=== PATIENT | female | born 1965 | race Caucasian/White ===

== ENCOUNTER 2022-04-06 07:30 | Outpatient (RCR) | payer MEDICAID, SELFPAY | END 2022-07-06 15:23 | disposition home or self-care (01) | PROVIDERS: PCP Physician Assistant Medical; Visit Provider Family Medicine | DX: M51.26 Other intervertebral disc displacement, lumbar region (principal); Z51.89 Encounter for other specified aftercare | CPT/HCPCS: 97110; 97112; 97140; 97161 ==

== ENCOUNTER 2024-09-21 17:02 | Emergency (ER) | payer BC, SELFPAY ==
--- OUTSIDE RECORDS SUMMARY | 2024-09-21 17:06 | XMS_ITS | Data Portability ---
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 Splint fit was reviewed and Adjustments were made to the splint to improve fit and occlusal comfort. Occlusal balance needed to be reset on the appliance. I recommended continued care with the physical therapy home exercise program. Patient has not been compliant with those in recent months. However, after a trial of home exercises, if symptoms are persistent, the patient may seek support from our PT. Total visit time 20 minutes. I spent 15 minutes on counselling and co-ordination of care. [email or web address] Not available 12/06/2017 11:27:31 06/26/2020 06/26/2020 Today I reviewed the diagnosis, contributing factors and treatment options. I reviewed and reinforced continued use of self care and home exercises. I've encouraged daily home care use which may consist of heat and ice compresses, oral habit reduction and relaxation techniques. The intraoral appliance was fractured. Today, we took impressions for a new custom maxillary stabilization device. In addition, I've recommended physical therapy with Keith Freedman DPT, to address her masticatory and cervical myofascial pain and tension-type headaches. I've requested her panoramic radiograph from her dentist as well. I've suggested that the patient return for follow-up care in 2 weeks. Today greater than 50% of the 25 minute visit was spent counseling and coordinating care. This may have included a review of the diagnosis, contributing factors, home self-management strategies and the limitations and expectations. Not available 06/26/2020 12:13:30 07/02/2020 07/02/2020 Symptoms are consistent with TMD diagnosis. Patient is low complexity with 1 personal factors/comorbidi ties affecting the plan of care, low complexity decision making and a stable clinical presentation. Examination yields 3 affected structures, participation restrictions and/or functional limitations. The patient will benefit from PT to decrease pain and increase function. Contributing factors include muscle guarding, stress and poor posture. Treatment will include exercises to release muscle tension and increase strength and stability. Habit monitoring and repeated reminding techniques will be utilized to eliminate habitual clenching. Improvement in first session; jaw opening increased, cervical ROM increased, pain level decreased Short term goals; 3 weeks Client to be able to bite down with 50% less pain than at evaluation Client to improve cervical ROM to Within Normal Limits Improve patient awareness of muscle guarding habits to decrease pain by 50% truck terminal manager goals-6 weeks Client to demonstrate independence in maintaining precautions to prevent TMJ pain Client to present with at least 75% less crepitis Client to open jaw to at least 40 mm without pain, deviation or crepitis Client to have pain-free chewing with moderately hard diet 75% of the time Client to report pain level is reduced at least 75% PLAN: Client is to be seen 1-2x/week for 4-8 weeks for instruction in jaw and neck exercises, postural exercises and body mechanics instructions, self-soft tissue mobilization and avoidance of precipitating parafunctional activities. [email or web address] Not available 07/02/2020 10:57:08 07/25/2020 07/25/2020 Patient was seen today for follow-up and insertion of a maxillary stabilization intraoral appliance. Diagnosis and contributing factors were reviewed. Questions were answered. Self-management and home exercise techniques were reviewed. Today the intraoral appliance was fit to patient comfort. Specifically, adjustments were made to balance appliance occlusion. Instructions on proper use and care were discussed/reviewe d both written and verbally. I suggested that (s)he uses the appliance as a retraining tool to aid in relaxing their jaw muscles - put it in 20-30 minutes before bed time, keeping their jaw in a relaxed balanced position, simultaneously applying a heat compress on the jaw. Potential side effects were reviewed. The patient was advised to discontinue oral appliance use should they experience untoward side effects or be unable to return for follow-up care. The patient was advised to return in 3-4 weeks to reassess their progress and continue their treatment plan as previously outlined. In addition to oral appliance insertion today we review home self-care strategies as previously discussed. We discussed additional treatment options including rehabilitative treatment with physical therapy History today was obtained from the patient. The patient has 5+ diagnoses which we are addressing. Their symptoms are chronic. This case is moderate complexity because of multiple diagnoses with chronic symptoms. Data reviewed included procedure documentation. Risk of complications include disease progression were discussed. Today time spent may have included a review of past records, history taking, review of diagnoses, contributing factors, treatment plan, diagnostic testing, prognosis, expectations, risks and complications of treatment/no treatment, discussions with other providers and completing documentation was 35 minutes. Not available 07/25/2020 16:08:56 08/29/2020 08/29/2020 Today I reviewed the diagnosis, contributing factors and treatment options. I reviewed and reinforced continued use of self care and home exercises. I've encouraged daily home care use which may consist of heat and ice compresses, oral habit reduction and relaxation techniques. The intraoral appliance was adjusted to patient comfort and balanced. History today was obtained from the patient. The patient has 5+ diagnoses they would like to address. Their symptoms are improving. This case is moderate complexity because of multiple diagnoses with chronic symptoms. Data reviewed included: procedure documentation. Risk of complications including disease progression were discussed. Today time spent may have included a review of past records, history taking, review of diagnoses, contributing factors, treatment plan, diagnostic testing, prognosis, expectations, risks and complications of treatment/no treatment, discussions with other providers and completing documentation was 35 minutes. I've suggested that the patient return for follow-up care in 3-4 months. Not available 08/29/2020 12:50:54 Plan of Treatment Reminders Order Date Submit Date Provider Last Modified By Organization Details Last Modified Time Details Appointments None recorded. Lab None recorded. Referral physical therapist referral 2019 020 [email or web address] Not available 0 12:24:21 Procedures None recorded. Surgeries None recorded. Imaging None recorded. Medication Orders None recorded. Patient TargetsNo targets recorded. Patient Instructions Encounter Date Encounter Id Patient Instructions Last Modified By Organization Details Last Modified Time 06/26/2020 [id number] oral appliance preparation* Not available 06/26/2020 12:14:41 07/02/2020 [id number] Plan: Medicare requires a audit specialist or CABLE TOOL OPERATOR to authorize our plan of care. If you agree with the plan as outlined above, please sign, date and fax back to [phone]. Thank you. Primary MD signature: Date: [email or web address] Not available 07/02/2020 10:02:24 Reason for Referral Physical Therapist Referral for Myofascial pain Referring Physician: Lesia Jewell, Pain Management, Encounter Date: 06/26/2020 Results Created Date Observation Date Name Description Value Unit Range Abnormal Flag Note LastModifiedBy Organization Detail LastModifiedTime 06/26/20 20 06/26/2020 oral appli ance prepa ratio n* Type of appliance maxill caitlyn stabil izatio n applia nce Not Available [place] [address] [facility] [address], [place], [address], 06/26/2020 12:13:33 Result Notes None recorded. 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 52063510771 616000 Active 2019 right disc displace ment with reductio n Lesia DeCjose lopez, [facility] 0 12:07:44 Arthralg ia of temporom andibula r joint 51325585 Active 2019 Lesianorma Vegasamm john, [facility] 0 12:08:02 Jaw pain 174081144 Completed 201506/26/2020 Lesia DeCjose john, [facility] 0 11:52:47 Headache 04722708 Completed 201506/26/2020 Lesia Milli lopez, [facility] 0 11:52:44 Migraine with aura 4417191 Completed 201506/26/2020 Lesia Milli lopez, [facility] 0 11:53:02 Fibromyo sitis 53769461 Completed 201406/26/2020 Lesianorma Vegasamm john, [facility] 0 11:52:41 Arthralg ia of temporom andibula r joint 74521806 Completed 201506/26/2020 Lesia Milli lopez, [facility] 0 12:08:02 Vitamin D deficien cy 50047668 Completed 200906/26/2020 Lesia Milli lopez [facility] 0 11:52:49 Inflamma tory disease of mucous membrane 39091788 Completed 201106/26/2020 Lesia Milli john, [facility] 0 11:52:57 Chronic tension- type headache 481275462 Completed 201406/26/2020 Lesia Milli lopez, [facility] 0 11:52:38 Finding of sensatio n by site 359439152 Completed 201506/26/2020 Lesia Milli lopez [facility] 0 11:52:34 Migraine without aura 95908459 Completed 201106/26/2020 Lesia lopez [facility] 0 11:53:00 Temporom andibula r joint disorder 38890013 Active 2011 Not Available [facility] 6 02:43:58 Chronic pain syndrome 141122132 Completed 201106/26/2020 Lesia lopez [facility] 0 11:52:51 Episodic tension- type headache 605123541 Active 2011 Not Available [facility] 6 02:46:58 Neck pain 96650169 Active 2014 Not Available [facility] 6 03:14:15 Problem Notes None recorded. Procedures Surgical History Date Name Laterality Status Provider Name and Address Organization Details Recorded Time 1 Oral appliance completed Lanre Bean [facility] 07/25/2020 14:12:25 1 56305 PT Eval - Low Complexity completed [facility] 07/02/2020 10:52:23 1 40764: Therapeutic Exercise completed Keithalberto Phelps [facility] 07/02/2020 10:58:11 1 51131: Manual Therapy completed Keithalberto Phelps [facility] 07/02/2020 10:57:57 [place] Teeth Extraction completed Sam Garcia [facility] 06/26/2020 11:45:18 Imaging Results None recorded. Procedure Notes None recorded. Medical Equipment None Reported. Allergies Allergen ID Allergen Name Allergen Category Reaction Reaction Severity Criticality Documentation Date Start Date Code Code System Note Provider Name and Address Organization Details Recorded Time 653 Benadryl medicatio n Not available Not available Not available 03/18/201613362 7 RxNorm Bharati Machado john [facility] 6 09:29:53 654 shellfish derived food,medi cation Not available Not available Not available 03/18/2016 56949 UNK Bharati lopez [facility] 6 09:29:58 655 Iodinated contrast media (substanc e) medicatio n Not available Not available Not available 03/18/2016 30370 2004 SNOMED Bharati lopez [facility] 6 09:30:14 656 morphine medicatio n Not available Not available Not available 03/18/2016 7052 RxNorm Bharati lopez [facility] 6 09:30:23 657 Sudafed medicatio n Not available Not available Not available 03/18/2016 81564 2 RxKisharm Bharati lopez [facility] 6 09:30:31 Medications Name Sig Start Date Stop Date Status Note LastModified by Organization Details LastModified Time cyclobenzap rine 10 mg tablet TAKE ONE TABLET BY MOUTH TWICE DAILY NEEDED for muscle spasm active Not Available Not Available No t Available Topamax 25 mg tablet one tab PO BID and increase by 1 tab BID each week up to 4 tabs BID 12/06 completed Not Available Not Available Not Available sumatriptan 50 mg tablet 12/06 completed Not Available Not Available Not Available triamcinolo ne acetonide 0.1 % topical cream 03/18 completed Not Available Not Available Not Available triamcinolo ne acetonide 0.025 % topical cream 03/18 completed Not Available Not Available Not Available amitriptyli ne 10 mg tablet 03/18 completed Not Available Not Available Not Available paroxetine 20 mg tablet 06/26 completed Not Available Not Available Not Available triamcinolo ne acetonide 0.1 % topical ointment Apply topically to affected area(s) 2 times daily active Not Available Not Available No t Available Valtrex 1 gram tablet TAKE ONE TABLET BY MOUTH TWICE DAILY active Not Available Not Available No t Available mometasone 0.1 % topical ointment 12/06 completed Not Available Not Available Not Available epinephrine 0.3 mg/0.3 mL injection, auto-inject or active Not Available Not Available Not Available methylpredn isolone 4 mg tablets in a dose pack 03/18 completed Not Available Not Available Not Available hydrocortis one 2.5 % topical ointment 12/06 completed Not Available Not Available Not Available fluticasone propionate 50 mcg/actuati on nasal spray,suspe nsion Inhale 1 spray every day by intranasa l route. active Not Available Not Available No t Available Lotemax 0.5 % eye drops,suspe nsion 03/18 completed Not Available Not Available Not Available Ventolin HFA 90 mcg/actuati on aerosol inhaler 12/06 completed Not Available Not Available Not Available Vitals Date Recorded Body height Body mass index (BMI) Body weight Heart rate Systolic blood pressure Diastolic blood pressure Provider Name and Address Organization Details Last Updated DateTime 8 165.1 cm 27 kg/m2 62149.9 6 g 59 /min 133 mm[Hg] 75 mm[Hg] Sam Garcia [facility] 8 10:14:20 Date Recorded Body height Body mass index (BMI) Body weight Body temperature Heart rate Systolic blood pressure Diastolic blood pressure Provider Name and Address Organization Details Last Updated DateTime 0 165.1 cm 28.6 kg/m2 82652.8 9 g 97.3 [degF] 74 /min 109 mm[Hg] 79 mm[Hg] Sam Garcia [facility] 0 11:41:05 Date Recorded Body height Body temperature Heart rate Systolic blood pressure Diastolic blood pressure Provider Name and Address Organization Details Last Updated DateTime 07/25/2020 165.1 cm 97.3 [degF] 74 /min 122 mm[Hg] 85 mm[Hg] Lanre Bean [facility] 1 14:05:49 Date Recorded Body height Body temperature Heart rate Systolic blood pressure Diastolic blood pressure Provider Name and Address Organization Details Last Updated DateTime 08/29/2020 165.1 cm 97.5 [degF] 73 /min 121 mm[Hg] 80 mm[Hg] Lanre Bean [facility] 1 09:33:08 Social History Question Answer Notes LastModified by Organizat ion Details LastModified Time Tobacco Smoking Status Never Smoker Bharati lopez [facility] 03/18/2016 09:32:16 What Is Your Level Of Alcohol Consumption? Moderate Information not available 06/26/2020 Auto Related Injury? No Information not available 06/26/2020 What Is Your Level Of Caffeine Consumption? Moderate Information not available 06/26/2020 Are You Currently Employed? No Information not available 06/26/2020 Currently No Information not available 06/26/2020 What Type Of Diet Are You Following? REGULAR Information not available 06/26/2020 Education 4 Year College Information not available 06/26/2020 Live Alone Or With Others? Alone Information not available 06/26/2020 Marital Status Single Informatio n not available 06/26/2020 Caffeine Use - How Much? 2 Cups Information not available 06/26/2020 What Was The Date Of Your Most Recent Tobacco Screening? 12/06/2017 Information not available 01/19/2019 General Stress Level Medium Information not available 06/26/2020 Do You Use Any Illicit Or Recreational Drugs? No Information not available 06/26/2020 Work Related Injury? No Information not available 06/26/2020 Sex: Unknown Functional Status Question Answer Note LastModified by Organization D etails LastModified Time What is your exercise level? Moderate Information not available 06/26/2020 Mental Status None recorded. Family History Nothing Reported Notes:03/09/2016: Father: Tanya springer, Cancer Mother: Hypertension Medical History Condition Response Coronary Artery Disease N Gout N Other N Chronic fatigue syndrome N Hyperthyroidism N Premenstrual syndrome (PMS) N MRSA N Head Trauma/Injury N Emphysema N Irritable bowel syndrome N Glaucoma N Lung Disease N COPD N Hypothyroidism N Depression N Pneumonia N Pacemaker N Obstructive Sleep Apnea N Anxiety Disorder N Autoimmune disease N Muscle, Joint, or Bone Problems N Vision or Eye Problems N Arthritis N Serious Illness or Injuries N Acid Reflux (GERD) N Cancer N Stroke N Eating disorder N Neck Injury N Back Injury N High Cholesterol N History of chemotherapy N Neurologic Disorder N Liver Disease N Organ Transplant N Rheumatoid Arthritis N Headaches N Fibromyalgia N Kidney Disease N Allergies/Hayfever N Post traumatic stress disorder (PTSD) N Parkinson's Disease N Migraines N Brain Tumors N Anemia N Multiple Sclerosis N Immune System Disorder N Meningitis N Pancreatic disease N Heart Attack ([place]) N Stomach Ulcers N Back pain N Diabetes N Bleeding Disorder N Seizures/Epilepsy N Sjogren's syndrome N Mental Health Concerns N Tuberculosis N AIDS/HIV N History of radiation therapy N Hyperlipidemia N Dementia N Asthma N Physical or sexual abuse N Substance Abuse N Peripheral Vascular Disease N Psoriasis N Reflux/GERD N Vertigo N Sleep Disorder N Aneurysm N Hepatitis N Heart Disease N Neuropathy N Pulmonary Embolism N Hypertension N Osteoporosis N Gynecological HistoryNo gynecological history recorded. Obstetrics History GPAL:G 0 P 0 0 0 0 Past Encounters Encounter ID Performer Location Encounter Start Date Encounter Closed Date Diagnosis/Indication Diagnosis SNOMED-CT Code Diagnosis ICD10 Code Diagnosis Note [id number] [place] [id number] 03/18/2016 09:23:04 03/18/2016 10:22:28 Migraine with aura 2265837 G43.109 I think there is some underlying distress and stress that contribute s to her polysympto molgy. She was not feeling any need to explore the stress factors or emotional factors. I am therefore going to treat the more persistent headache symptoms as migraine with a trial of topiramate . I reviewed the side effects and the importance of hydration to prevent kidney stones. If she is not improving, I will make another effort to delve into contributi ng factors. [id number] Renetta Douglas DDS [address] [place] [id number] 12/06/2017 09:58:48 12/06/2017 11:29:46 Headache 41653031 R51 Fibromyositis 55985287 M 79.7 Chronic te nsion-type headache 703734563 G44.229 Episodic t ension-type headache 652415613 G44.219 [id number] Lesia Milli Hall[address] [place] [id number] 06/26/2020 11:25:52 06/26/2020 12:24:21 Episodic tension-type headache 492473565 G44.219 Otalgia of left ear 1089 394717 549402 H92.02 Temporoman dibular joint disorder 27057970 M26.609 Neck pain 63830619 M54.2 Arthralgia of temporomandibular joint 24136448 M26.623 Myofascial pain 87624333 9 M79.11 M79.12 tailercpa y and cervical Articular disc disorder of right temporomandibular joint 4352982479 9425492 M26.631 right disc displaceme nt with reduction [id number] Keith Cabello [address] [place] [id number] 07/02/2020 09:55:59 07/02/2020 10:44:06 Arthralgia of temporomandibular joint 68077011 M26.629 Articular disc disorder of right temporomandibular joint 9794150479 8144036 M26.631 Episodic t ension-type headache 684602027 G44.219 Myofascial pain 64507043 9 M79.10 Neck pain 29591400 M54.2 Otalgia of left ear 1089 114434 801965 H92.02 Temporoman dibular joint disorder 79172669 M26.609 [id number] Lesia Hall[address] [place] [id number] 07/25/2020 13:59:12 07/25/2020 14:48:22 Otalgia of left ear 9983525008 309440 H92.02 Articular disc disorder of right temporomandibular joint 9604064424 4387482 M26.631 right disc displaceme nt with reduction Episodic t ension-type headache 340154786 G44.219 Myofascial pain 52940768 9 M79.11 M79.12 tailercpa y and cervical Temporoman dibular joint disorder 13454524 M26.609 Neck pain 62850739 M54.2 Arthralgia of temporomandibular joint 95409048 M26.623 [id number] Lesia Cabello [address] [place] [id number] 08/29/2020 09:27:01 08/29/2020 10:13:48 Otalgia of left ear 5111938101 374719 H92.02 Articular disc disorder of right temporomandibular joint 1832635740 6852770 M26.631 right disc displaceme nt with reduction Episodic t ension-type headache 539690838 G44.219 Myofascial pain 60866966 9 M79.11 M79.12 tailercpa y and cervical Temporoman dibular joint disorder 00943070 M26.609 Neck pain 55526907 M54.2 Arthralgia of temporomandibular joint 58089477 M26.623 Health Concerns Section Related Observation LastModified by Organization Detai ls LastModified Time None Recorded Concern Status LastModified by Organization Details LastModified Time None Recorded Advance Directives Directive None Recorded Payers Encounter Date Sequence Insurance Name Policy Number Policy Guerrero Covered Member ID Guerrero Member ID Guarantor Name 12/06/2017 1 [facility] (MEDICAID HMO) [id number] Stephanie Artie [id number] Stephanie Artie 06/26/2020 [address] [facility] (MEDICAID REPLACEMENT - HMO) [facility] L Artie [id number] Stephanie Artie 07/02/2020 [address] [facility] (MEDICAID REPLACEMENT - HMO) [facility] Stephanie L Artie [id number] Stephanie Artie 07/25/2020 [address] [facility] (MEDICAID REPLACEMENT - HMO) [facility] Stephanie L Artie [id number] Stephanie Artie 08/29/2020 [address] [facility] (MEDICAID REPLACEMENT - HMO) [facility] L Artie [id number] Stephanie Artie Notes Date Note Type Note Provider Name and Address Organization Details Recorded Time 12/06/2017 text/html Patient reports that the jaw pain, located on the {{left-side* right- side both-sides}} has {{Improved* worsene d not changed resolved}} since the previous visit. Patient reports the quality of this pain as {{dul ache# }} . Patient rates the pain severity as {{0-3* 4-6 7-10}} on a scale of 0 to 10. Aggravating factors include {{chewing, stress, teeth clenching# chewing talking yawning ope jessica mouth wide teeth clenching teeth grinding stress anx iety}} .Alleviating factors include {{splint therapy, soft-diet, physical therapy,relaxation# soft-diet splint therapy physical therapy relaxation OTC Medications}}.Mehnaz tate is currently engaged in treatments including {{self-care self-ca re & PT Physical therapy self-care, PT and Health Psychology* self-ca re, medication, PT}}. Patient has seen the physical therapist in 2014. Renetta lopez [facility] 12/06/2017 11:27:46 06/26/2020 text/html Patient presents today for follow-up. They report jaw symptoms which are {{improved worsened * unchanged resolve d}} since the previous visit. Symptoms and pertinent information along with prior data was reviewed, updated and documented in the patient history of present illness. Patient rates the pain intensity as {{0 1 2 3 4 5 6* 7 8 9 10}} on a scale of 0 to 10. Patient is {{engaged in not engaged in partially engaged in completed* disco ntinued}} active treatment at this time. Stephanie is a former patient of Dr. Dunn. She has been wearing a maxillary splint for 5+ years. She has previously been engaged in p/t with Chelsi in 2014. 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 Since then, she has been experiencing jaw pain radiating down her neck and upper back, and steady dull headaches. Lesia lopez [facility] 06/26/2020 12:14:46 07/02/2020 text/html Personal factors and/or comorbidities affecting the plan of care include . Functional limitations and participation restrictions include . Patient presents today for PT evaluation regarding {{jaw pain jaw pain and neck pain jaw pain, neck pain and headaches jaw pain and decreased jaw range of motion}}. Symptoms began with {{no clear triggering events trauma stres s and anxiety oral habits stress, anxiety and oral habits}}. Contributing factors: *Clenching *Bruxism *Leaning on chin *Phone cradle *Biting objects/fingernails *[place]verse/chewing lips/cheeks *Tongue thrusting *Jaw thrusting *Unilateral chewing *{{Low Medium High} } stress level *{{Low Medium High} } anxiety level *Nicotine *Caffeine{{1 2 3 4 5}} per day *Sleep position {{left side right side sides and back sides and stomach sides, back and stomach}} *Work ergonomics{{good fa ir poor}} Patient presents today for follow-up. They report jaw symptoms which are {{improved worsened * unchanged resolve d}} since the previous visit. S Personal factors and/or comorbidities affecting the plan of care include . Functional limitations and participation restrictions include . Patient presents today for PT evaluation regarding {{jaw pain jaw pain and neck pain jaw pain, neck pain and headaches* jaw pain and decreased jaw range of motion}}. Symptoms began with {{breaking mouthguard; not in yet for new one# no clear triggering events trauma stres s and anxiety oral habits stress, anxiety and oral habits}}. Contributing factors: *Clenching *possibly*Leaning on chin *possibly *Unilateral chewing *Patient presents today for follow-up. They report jaw symptoms which are {{improved worsened * unchanged resolve d}} since the previous visit. Symptoms and pertinent information along with prior data was reviewed, updated and documented in the patient history of present illness. Patient rates the pain intensity as {{0 1 2 3* 4 5 6 7 8 9 10}} on a scale of 0 to 10. Stephanie is a former patient of Dr. Dunn. She has been wearing a maxillary splint for 5+ years. She has previously been engaged in p/t with Chelsi in 2014. 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 Since then, she has been experiencing jaw pain radiating down her neck and upper back, and steady dull headaches. She sees she is dependent on splint. once that broke symptoms came back. Cervical rotation left 57, right 68. She rates her headache at 3/10, gone by end of session. Upper trapezius sheet stretch helped Jaw opening 48 mm, painful bilaterally. Impct roves to 55 mm post upper trapezius stretch. Clicking in jaw was still present though, which was relieved with cervical retraction to help correct poor moderate forward head posture. Palpation: tenderness and tightness in occipitals, masseters, SCM, upper trapezius. Not digastrics or temporalis as much. JOSEPH Mathis [facility] 07/02/2020 10:58:22 07/25/2020 text/html Patient presents today for insertion of a {{mandibular stabilization maxil veronica stabilization* repo sitioning mandibula r advancement}} oral appliance. They note {{no changes in* improved worsen ing}} symptoms which along with prior data was reviewed, updated and documented in the patient history of present illness. (S)he describes {{compliance* parti al compliance non-comp liance}} with home self care as previously recommended. Stephanie states that she had one session of p/t but does not feel like she needs any more sessions at this time. She is still experiencing jaw and tooth pain radiating down neck and into her back. She is looking forward to her new splint. JOSEPH Zarate [facility] 07/25/2020 16:11:17 08/29/2020 text/html Patient presents today for follow-up. They report jaw symptoms which are {{improved* worsene d unchanged resolve d}} since the previous visit. Symptoms and pertinent information along with prior data was reviewed, updated and documented in the patient history of present illness. Patient rates the pain intensity as {{0 1 2 3* 4 5 6 7 8 9 10}} on a scale of 0 to 10. Patient is {{engaged in* not engaged in partially engaged in completed discon tinued}} active treatment at this time. Stephanie reports that she has been wearing the splint nightly and doing her p/t exercises regularly. She has noticed an improvement in her jaw pain. She recently had a severe headache on the left side of her head radiating down her neck in addition to fatigue. She had two Covid tests which were negative. The headache eventually resolved itself. Stephanie started a new job at the [employer], and it has been very stressful thus far. JOSEPH Zarate [facility] 08/29/2020 12:51:19 OBGyn Episode No OBEpisode recorded.
--- OUTSIDE RECORDS SUMMARY | 2024-09-21 17:06 | XMS_ITS | Clinical Summary ---
Author Organization [employer] [facility] Address [address] [place] [address] Care Team Providers Care Information Technology Auditor Name Role Phone Miryam Mcclain Primary Care Provider Allergies Active Allergy Reactions Criticality Noted Date Comments Aluminum Chloride Other - Describe In Comment Field Unknown 01/26/2018 Eczema Amoxicillin Rash 07/09/2011 Cetrimide Other - Describe In Comment Field 01/26/2018 eczema Cetrimonium Chloride Other - Describe In Comment Field Unknown 01/26/2018 eczema Cocamidopropyl Betaine Other - Describe In Comment Field Unknown 01/26/2018 eczema Dog Dander Itching 11/25/2006 Canine Protein Containing Products Itching 11/25/2006 House Dust Itching 11/25/2006 Iodinated Contrast Media Hives High 04/09/2008 See 03/2008 CT scan and clinic notes. See 03/2008 CT scan and clinic notes. Lanolin Other - Describe In Comment Field Unknown 01/26/2018 eczema Metrizamide Hives High 09/27/2017 Mite Extract Itching 11/25/2006 Mold Itching 11/25/2006 Mold Extracts Itching 11/25/2006 Morphine 10/26/2006 vomiting, diarrhea Nickel *Unknown 01/03/2014 Was tested for this Omeprazole Nausea Only 07/28/2011 Polysorbate 20 Other - Describe In Comment Field 01/26/2018 eczema Pseudoephedrine Shortness Of Breath,Anaphylaxis, Angioedema High 09/03/2006 Shellfish Containing Products Other - Describe In Comment Field 11/25/2006 puffiness puffiness Sorbitan Sesquioleate Other - Describe I n Comment Field 01/26/2018 eczema Unlisted Allergen (Include Detail In Comments) Rash 10/01/2017 Patch Test Results 10-01-17 Very Strong/Strong None Mild None Doubtful (Possible Irritant) Cocamidopropyl betaine Sorbitan sequioleate Lanolin Licorice root extract Centrimonium chloride 4-aminobenzene 1-20 Fragrances Aluminum chloride hexahydrate Curel hydratherapy Pantene shampoo Curel Anti Itch BW Medications hydrocortisone (HYTONE) 2.5 % ointment Apply topically to affected area(s). 10/02/19 18 Active EPINEPHrine (EpiPen) 0.3 mg/0.3 mL injectionIndicat ions:Annual physical exam Inject 0.3 mg intramuscular one time if needed for Allergic Reaction. 1 Each 3 12/13/19 21 Active fluticasone (50 mcg per actuation) nasal solution (FLONASE)Indicat ions:Seasonal allergic rhinitis due to pollen Inhale 2 Sprays to both nostrils once daily. Will call for refill. 3 Bottle 3 12/13/19 21 Active albuterol HFA (PRO-AIR; VENTOLIN; PROVENTIL) 90 mcg/actuation inhalerIndicatio ns:Mild intermittent reactive airway disease without complication (HC) Inhale 1-2 Puffs by mouth every 4 hours if needed for Shortness Of Breath. 1 Each 1 01/01/20 23 Active Valtrex 1 gram tabletIndication s:Recurrent HSV (herpes simplex virus) Take 1 Tablet (1 g) by mouth two times daily. 180 Tablet 2 07/30/19 24 Active valACYclovir (VALTREX) 1 gram tabletIndication s:Recurrent HSV (herpes simplex virus) Take 1 Tablet (1 g) by mouth two times daily. 180 Tablet 2 07/30/19 24 Active triamcinolone 0.1 % ointmentIndicati ons:Chronic eczema Apply topically to affected area(s) two times daily. 240 g 3 02/24/20 24 Active cyclobenzaprine (FLEXERIL) 5 mg tabletIndication s:Piriformis syndrome of right side Take 1 Tablet (5 mg) by mouth three times daily. 10 Tablet 06/13/20 24 Active Active Problems Problem Noted Date Diagnosed Date Mild intermittent reactive a irway disease without complication 02/11/2024 Routine adult health maintenance 10/21/2015 Overview (10/21/2015): Colonoscopy 09/2015 normal repeat in 10 years Cervicogenic headache 12/15/2013 DDD at C6-7 12/15/2013 TMJ syndrome 09/19/2013 Recurrent cold sores 07/20/2012 Overview (07/20/2012): Valtrex works well for this C6-7 Disc Herniation 12/23/2009 IBS (irritable bowel syndrome) 02/01/2009 Adjustment disorder with mixed anxiety and depre ssed mood 11/28/2007 Iron deficiency anemia, unspecified 11/16/2007 Allergic rhinitis, cause unspecified 05/21/2007 Myalgia and myositis, unspecified 12/03/2006 H/O LEEP Overview (02/22/2024): Cryotherapy x2 in 20s 06/2010 ASCUS/HPV negative 06/2011 NIL 11/2014 NIL 11/2017 NIL/HPV negative 12/2022 ASCUS/HPV 16 positive, HPV 18 negative 01/2023 [place]: ECC Benign 01/2024 ASCUS/HPV 16 positive, HPV 18 negative. Plan: Colposcopy. Resolved Problems Problem Noted Date Diagnosed Date Resolved Date History of colon polyps 12/04/2014/10/2015 Overview (12/04/2014): Colonoscopy 2007 Abdominal pain, epigastric 10/05/2011 0 12/15/2013 Overview (10/05/2011): EGD 09/2011 normal Anxiety state, unspecified 07/28/2011 0 12/15/2013 Displacement of cervical int ervertebral disc without myelopathy 03/04/2007 08/17/2013 Anxiety state, unspecified 11/01/2006 0 11/28/2007 Encounters Date Type Department Care Team Description 09/21/2024 Nurse Triage [facility] [address] [facility] [place] [address] Miryam Mcclain PA Chest Pain 08/10/2024 4:00 PM LINE MAINTENANCE TECHNICIAN Ancillary Procedure [facility] [address] [facility] [place] [id number] 08/10/2024 Travel 07/31/2024 8:30 AM LINE MAINTENANCE TECHNICIAN Office Visit [facility] [address] [place] [address] Miryam Mcclain PA Influenza Like Illness (Headaches, dry cough, fever, chest pain, dry sinuses since Wednesday AM) 07/31/2024 Travel from Last 3 Months Immunizations Immunization Administration Dates Next Due Hepatitis B (Adult) 08/14/1998,03/12/1998,1997 MMR 02/08/1998 Td (Age >=7 Years) 03/07/2003 Tdap 12/12/2020 Family History Medical History Relation Name Comments Good Health Brother Arthritis Father Cancer Father bone at 57 Cancer Maternal Grandfather Heart Disease Maternal Grandfather [place] at 48 Allergies Mother born 1942 Heart attack Mother Hyperlipidemia Mother Hypertension Mother Stroke Mother Heart Disease Other runs in both s ides of family Good Health Sister Cancer-breast No Family History Relation Name Status Comments Brother Father (Age 57) bone ca Maternal Grandfather Maternal Grandmother (Age 58) un known malignancy Mother Other Sister Social History Tobacco Use Types Packs/Day Years Used Date Smoking Tobacco: Former Cigarettes 1 15 1 - 04/02/2006 Smokeless Tobacco: Never Tobacco Cessation:Counseling Given: No Comments:quit in 03/2006 Alcohol Use Standard Drinks/Week Comments No 0 (1 standard drink = 0.6 oz pur e alcohol) none, not in 20+ years PHQ-2 Answer Date Recorded PHQ-2 TOTAL SCORE 0 02/11/2024 Social Connections Answer Date Recorded Do you often feel lonely or isolated from those around you? 0 07/31/2024 Financial Resource Strain Answer Date R ecorded Difficulty of Paying Living Expenses 3 07/31/2024 Difficulty of Paying Living Expenses Not on file 07/31/2024 Food Insecurity Answer Date Recorded Do you worry your food will run out before you are able to buy more? 1 07/31/2024 Transportation Needs Answer Date Record ed Does lack of transportation keep you from medica l appointments? 1 07/31/2024 Does lack of transportation keep you from work, meetings or getting things that you need? 1 07/31/2024 Housing Stability Answer Date Recorded What is your housing situation today? 1 07/31/2024 Utilities Answer Date Recorded Do you have trouble paying f or utilities (for example, heat, electricity, water, phone)? 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 Not on file Not on file Not on fi le Not on file Not on file Not on file Not on file Obstetrics History Para Term AB IAB SAB Ectopic Multiple Livin g Live Births 2 2 2 0 0 0 0 0 2 Date Outcome GA Total Labor Labor/2nd/3rd Weight Sex Type Anes PTL [place] A1 A5 Name Clin Term Term Last Filed Vital Signs Vital Sign Reading Time Taken Comments Blood Pressure 109/72 07/31/2024 8:32 AM LINE MAINTENANCE TECHNICIAN Pulse 88 07/31/2024 8:32 AM LINE MAINTENANCE TECHNICIAN Temperature 37.2 C (99 F) 07/31/2024 8:32 AM LINE MAINTENANCE TECHNICIAN Respiratory Rate 14 07/20/2023 8:43 AM LINE MAINTENANCE TECHNICIAN Oxygen Saturation 96% 07/31/2024 8:32 AM LINE MAINTENANCE TECHNICIAN Inhaled Oxygen Concentration - - Weight 79.8 kg (176 lb) 07/31/2024 8:32 AM LINE MAINTENANCE TECHNICIAN Height 165.1 cm (5' 5) 02/11/2024 7:53 AM CDT Body Mass Index 29.29 02/11/2024 7:53 AM CDT Plan of Treatment Upcoming Encounters Date Type Department Care Team (Late st Contact Info) Description 01/22/2025 8:30 AM CDT Office Visit [facility] [address] [place] [address] Miryam Mcclain PA [address] [place] [address] Health Maintenance Due Date Last Done Comments HIV for age 15-65 1980 Pneumococcal series for age 50+ (1 of 1 - PCV) 2015 Zoster (shingles) series for age 50+ (1 of 2) 2015 Mammogram for age 45-75 01/23/2024 01/23/20 23, 10/20/2021, 07/23/2020, Additional history exists COVID-19 vaccine series ( - 2023-25 season) 2024 Influenza Vaccine (#1) 2024 BMI (ht and wt on same day) for age 18+ 02/10/2025 02/11/2024, 12/31/2022, 03/04/2022, Additional history exists Depression screening for age 12+ 02/10/2025 02/11/2024, 10/20/2022, 09/22/2022, Additional history exists Pap test for age 21-65 03/08/2025 (Verified in Care Everywhere or Patient Record), 02/11/2024, 02/11/2024, Additional history exists Lipids for age 45-75 02/10/2029 02/11/2024, 12/31/2022, 12/13/2020, Additional history exists Tetanus booster 12/12/2030 12/12/2020, 03/07/2003 Colonoscopy through age 75 07/20/203307/20, 07/20/2023, 07/20/2023, Additional history exists Hepatitis C screening for ag e 18-79 Completed 12/04/2014 Tdap Completed 12/12/2020 Procedures Procedure Name Priority Date/Time Associated Diagnosis Comments CT CHEST WO Routine 08/10/2024 3:58 PM LINE MAINTENANCE TECHNICIAN Incidental lung nodule, less than or equal to 3mm LIPID PANEL W REFLEX MEASURED LDL Routine 02/11/2024 8:46 AM CDT Lipid screening HPV HIGH RISK Routine 02/11/2024 8:28 AM CDT Screening for cervical cancer COLONOSCOPY DIAGNOSTIC Routine 07/20/2023 7:21 AM LINE MAINTENANCE TECHNICIAN Hematochezia XR MAMMO JUNG BILAT SCREEN Routine 01/22/2023 8:08 AM CDT Encounter for screening mammogram for malignant neoplasm of breast ANTI HCV Routine 12/04/2014 10:17 AM CDT Need for hepatitis C screening test from Last 3 Months or Most Recently Relevant to Health Maintenance Results * CT CHEST WO (08/10/2024 3:58 PM LINE MAINTENANCE TECHNICIAN) Anatomical Region Laterality Modality CHEST, THORAX, HEART Computed To mography 08/11/2024 1:26 PM LINE MAINTENANCE TECHNICIAN Impressions 08/11/2024 1:26 PM LINE MAINTENANCE TECHNICIAN Stable 3 millimeter right upper lobe pulmonary nodule. No new or concerning lung nodule. Please note that all CT scans at this facility use dose modulation, iterative reconstruction, and/or weight-based dosing when appropriate to reduce radiation dose to as low as reasonably achievable. Dictated by Ruben Plascencia MD @ 08/11/2024 1:26:34 PM (Electronically Signed) Narrative 08/11/2024 1:26 PM LINE MAINTENANCE TECHNICIAN For Patients: As a result of the Cures Act, medical imaging exams and procedure reports are released immediately into your electronic medical record. You may view this report before your referring provider. If you have questions, please contact your health care provider. INDICATION: Lung nodule. TECHNIQUE: CT chest without contrast. COMPARISON: None. FINDINGS: Lungs and pleura: Unchanged 3 millimeter right upper lobe pulmonary nodule (). A small calcified granuloma in the right upper lobe. Chronic scarring/subsegmental atelectasis in the medial segment of right middle lobe. No new or suspicious lung nodule. No pleural effusion or pneumothorax. The central airways are patent. Heart and vasculature: Cardiac size is within normal limits without pericardial effusion. Thoracic aorta and pulmonary artery are of normal caliber. Lymph nodes/mediastinum: No suspicious mediastinal or axillary adenopathy. No hilar lymph nodes. Upper abdomen: Stable few hypodense liver lesions. No acute findings in the upper abdomen. Bones: Minimal degenerative changes of the spine. No concerning bony lesion. Procedure Note Ruben Plascencia MD - 08/11/2024 For Patients: As a result of the Cures Act, medical imagingexams and procedure reports are released immediately into your electronicmedical record. You may view this report before your referring provider.If you have questions, please contact your health care provider. INDICATION: Lung nodule. TECHNIQUE: CT chest without contrast. COMPARISON: None. FINDINGS: Lungs and pleura: Unchanged 3 millimeter right upper lobe pulmonary nodule(). A small calcified granuloma in the right upper lobe. Chronicscarring/subsegmental atelectasis in the medial segment of right middlelobe. No new or suspicious lung nodule. No pleural effusion orpneumothorax. The central airways are patent. Heart and vasculature: Cardiac size is within normal limits withoutpericardial effusion. Thoracic aorta and pulmonary artery are of normalcaliber. Lymph nodes/mediastinum: No suspicious mediastinal or axillary adenopathy.No hilar lymph nodes. Upper abdomen: Stable few hypodense liver lesions. No acute findings inthe upper abdomen. Bones: Minimal degenerative changes of the spine. No concerning bonylesion. IMPRESSION: Stable 3 millimeter right upper lobe pulmonary nodule. No new orconcerning lung nodule. Please note that all CT scans at this facility use dose modulation,iterative reconstruction, and/or weight-based dosing when appropriate toreduce radiation dose to as low as reasonably achievable. Dictated by Ruben Plascencia MD @ 08/11/2024 1:26:34 PM (Electronically Signed) us Miryam EVANGELISTA CT Final R esult * (ABNORMAL) LIPID PANEL W REFLEX MEASURED LDL (02/11/2024 8:46 AM CDT) CHOLESTEROL,TOTAL 203(H) 100 - 199 mg/dL 02/11/2024 5:31 PM CDT [facility] Comment: Cholesterol, Total Reference Ranges Desirable <200 mg/dL Borderline 200-239 mg/dL High >=240 mg/dL TRIGLYCERIDES 173(H) <150 mg/dL 02/11/2024 5:31 PM CDT [facility] HDL CHOLESTEROL 54 >40 mg/dL 5:31 PM CDT [facility] NON-HDL CHOLESTEROL 149(H) <145 mg/dl 02/11/2024 5:31 PM CDT [facility] CHOL/HDL RATIO 3.76 <4.50 02/11/2024 5:31 PM CDT [facility] LDL CHOLESTEROL 114 <=130 mg/dL 02/11/2024 5:31 PM CDT [facility] VLDL CHOLESTEROL 35(H) <=30 mg/dL 02/11/2024 5:31 PM CDT [facility] PROVIDER ORDERED STATUS RANDOM 02/11/2024 5:31 PM CDT [facility] Blood BLOOD SPECIMEN / Unknown Venipuncture / Unknown 02/11/2024 8:46 AM CDT 02/11/2024 8:46 AM CDT us [address] MD CHEMISTRY Final Resul t Performing Organization Address City/[facility] Co de Phone Number [facility] [address] [address], [place] * (ABNORMAL) HPV HIGH RISK (02/11/2024 8:28 AM CDT) TYPE 16 Positive(A) Negative 02/16/2024 5:34 PM CDT [facility] TYPE 18 Negative Negative 02/16/2024 5:34 PM CDT [facility] OTHER HIGH RISK TYPES Negative Negative 02/16/2024 5:34 PM CDT [facility] Other (Cervical) Non-Blood / Unknown 02/11/2024 8:28 AM CDT 02/14/2024 3:30 PM CDT Narrative [facility] - 02/16/2024 5:34 PM CDT Specimen is positive for HPV type 16 DNA. HPV types 18, 31, 33, 35, 39, 45, 51, 52, 56, 58, 59, 66 and 68 DNA were undetectable or below the pre-set threshold Methodology: Lori Juan [address] HPV Test us Ophelia [address] MD MICROBIOLOGY Final Resul t Performing Organization Address [facility] Co de Phone Number [facility] [address] [address], [place] * COLONOSCOPY (07/20/2023 7:46 AM LINE MAINTENANCE TECHNICIAN) 07/20/2023 7:46 AM LINE MAINTENANCE TECHNICIAN Narrative Transcriptions Varun Centeno MD - 07/20/2023 8:34 AM CST Patient Name: Stephanie Alva Procedure Date: 07/20/2023 Gender: Female Date of : 1965 Admit Type: Outpatient Procedure: Colonoscopy Proceduralist: Varun Centeno MD , Nan Cornell (Nurse), Allegra Perez RN (Nurse) Referring MD: Ophelia St Indications/Pre-Op Diagnosis: Evaluation of unexplained GI bleeding presenting with Hematochezia, Lastcolonoscopy: September 2015 Medications: Fentanyl 50 micrograms IV, Midazolam 2 mgIV, The level of sedation administered wasmoderate Procedure Description: The patient had risks, benefits and alternatives explained to andgave informed consent. The patient had a stable cardiopulmonary status and judged an adequate candidate for conscious sedation. The [id number] was passed through the anus and advanced to the terminal ileum. The colonoscopy was performed without difficulty. The patient tolerated the procedure well. The quality of the bowel preparationwas good. The terminal ileum, ileocecal valve, appendiceal orifice, and rectum were photographed. Complications: No immediate complications. Estimated Blood Loss & Specimen: Estimated blood loss: none. Specimen collected - None Findings: The perianal and digital rectal examinations were normal. Non-bleeding internal hemorrhoids were found during retroflexion. The hemorrhoids were mild. The terminal ileum appeared normal. The exam was otherwise without abnormality on direct and retroflexion views. Impressions/Post-Op Diagnosis: - Non-bleeding internal hemorrhoids. - The examined portion of the ileum was normal. - The examination was otherwise normal on direct and retroflexionviews. - No specimens collected. Recommendation: - Patient has a contact number available for emergencies. The signsand symptoms of potential delayed complications were discussed with the patient. Return to normal activities tomorrow. Written discharge instructions were provided to the patient. - Resume previous diet. - Continue present medications. - Repeat colonoscopy in 10 years for screening purposes. - I will order a liver panel and celiac screen for her epigastric discomfort. Moderate Sedation: A time out was performed before the procedure. Moderate (conscious) sedation was administered by the endoscopy nurse and supervised bythe endoscopist. The following parameters were monitored: oxygensaturation, heart rate, blood pressure, EKG, CO2, respiratory rate, adequacy of pulmonary ventilation and reponse to care. Please refer to the patient's medical record flowsheets and nursing notes for moderate sedation details. Total physician intraservice time was 16 minutes. Varun Centeno MD 07/20/2023 8:33:45 AM This report has been signed electronically. Note Initiated On: 07/20/2023 7:46 AM Procedure Code(s): --- Professional --- 93186, Colonoscopy, flexible; diagnostic, including collection of specimen(s) bybrushing or washing, when performed (separateprocedure) Diagnosis Code(s): --- Professional --- K64.8, Other hemorrhoids K92.1, Melena (includes Hematochezia) CPT copyright 2021 [employer]. All rights reserved. The codes documented in this report are preliminary and upon certified coder reviewmay be revised to meet current compliance requirements. Scope In: 8:10:10 AM Scope Withdrawal Time 0 hours 7 minutes 28 seconds Scope Out: 8:23:59 AM us Varun Centeno MD PROCEDURE ORD Final Res ult * XR MAMMO JUNG BILAT SCREEN (01/22/2023 8:08 AM CDT) Anatomical Region Laterality Modality BREASTS, Breast Left, Breast Right Bilateral Mammography Impressions 01/22/2023 3:50 PM CDT There is no radiographic evidence for malignancy. Recommend annual mammograms. MAMMOGRAM ASSESSMENT: ACR 1 Negative PATIENTS: You will also receive a letter with your examination results in an easy to read format. If you have questions about your results, please contact your referring provider. Narrative 01/22/2023 3:50 PM CDT For Patients: As a result of the Century Cures Act, medical imaging exams and procedure reports are released immediately into your electronic medical record. You may view this report before your referring provider. If you have questions, please contact your health care provider. XR MAMMO JUNG BILAT SCREEN [[id number]] CLINICAL HISTORY: This is an asymptomatic 57 y.o. patient. INDICATION FOR EXAM: Mammogram Screening. TECHNIQUE: CC & MLO views were obtained. This study was evaluated with the assistance of Computer-Aided Detection. Breast Tomosynthesis was used in interpretation. COMPARISON FILM: [facility] FINDINGS: The breasts are heterogeneously dense, which may obscure small masses. There are no dominant masses, suspicious micro calcifications or areas of architectural distortion. Miryam EVANGELISTA MAMMO Final R esult * ANTI HCV (12/04/2014 10:17 AM CDT) HEPATITIS C ANTIBODY Non-Reacti ve Non-Reacti ve 12/04/2014 5:14 PM CDT [facility] Blood specimen (specimen) BLOOD SPECIMEN / Unknown Venipuncture / Unknown 12/04/2014 10:17 AM CDT 12/04/2014 10:17 AM CDT Narrative [facility] - 12/04/2014 5:14 PM CDT Antibodies to HCV not detected; does not exclude the possibility of exposure to HCV. Brittany Valiente NP SEND OUTS F inal Result [facility] [address] [place] [address], [place] from Last 3 Months or Most Recently Relevant to Health Maintenance Insurance [facility] Care Teams Information Technology Auditor Relationship Specialty Start Date End Date Miryam Mcclain PA [address] [place] [address] PCP - General Family Practice 12/25/13
--- OUTSIDE RECORDS SUMMARY | 2024-09-21 17:06 | XMS_ITS | Clinical Summary ---
Author Organization [facility] Address [address] [place] [address] Care Team Providers Care Sales Representative Jewelry Name Role Phone Unassigned, Provider Primary Care Provider Unava ilable Source Comments You are receiving this document as you are listed as the primary care provider,follow-up provider, or the patient has been referred to you for consultation.This is in compliance with the Medicare andMedicaid EHR Incentive Program,which states Providers who transition their patient to another setting of careor provider of care or refers their patient to another provider of care shouldprovide summary care record for each transition of care or referral. [facility] Allergies Active Allergy Reactions Criticality Noted Date Comments Aluminum Chloride Other, see comments 8 Eczema Amoxicillin Rash 07/09/2011 Canine Itching 11/25/2006 Cetrimide Other, see comments 01/26/2018 eczema Cocamidopropyl Betaine Other, see comments 06/2017 eczema Dust Mite Extract Itching 11/25/2006 Iodinated Contrast Media Hives High 04/09/2008 See 03/2008 CT scan and clinic notes. Lanolin Other, see comments 01/26/2018 eczema Metrizamide Hives High 09/27/2017 Molds & Smuts Itching 11/25/2006 Morphine 10/26/2006 vomiting, diarrhea Nickel 01/03/2014 Other reaction(s): *Unknown Was tested for this Omeprazole Nausea 07/28/2011 Other Rash 10/01/2017 Patch Test Results 10-01-17 Very Strong/Strong None Mild None Doubtful (Possible Irritant) Cocamidopropyl betaine Sorbitan sequioleate Lanolin Licorice root extract Centrimonium chloride 4-aminobenzene 1-20 Fragrances Aluminum chloride hexahydrate Curel hydratherapy Pantene shampoo Curel Anti Itch BW Pseudoephedrine Anaphylaxis,Angioed haseeb High 09/03/2006 Other reaction(s): Shortness Of Breath, Swelling Shellfish Allergy Other, see comments 7 puffiness Sorbitan Other, see comments 01/26/2018 eczema Morphine And Codeine Breathing Difficulty High 09/27/2017 Swelling Medications triamcinolone acetonide (KENALOG) 0.1 % ointment Apply topically two times a day. 454 g 1 8 Active Cholecalciferol (VITAMIN D3) 25 MCG (1000 UT) Take 1 Capsule by mouth. 2 Active EPINEPHrine (EPIPEN) 0.3 MG/0.3ML injection Inject 0.3 mg intramuscularl y. 7 Active fluticasone propionate (FLONASE) 50 MCG/ACT nasal solution 2 Sprays by Nasal route. 9 Active mometasone (ELOCON) 0.1 % ointment Apply twice daily to affected areas on hands only x 4 weeks; Not for use on face, axillae or groin. 7 Active tacrolimus (PROTOPIC) 0.1 % ointment Apply twice daily to areas affected with eczema 7 Active cyclobenzaprine (FLEXERIL) 10 MG tablet Take 10 mg by mouth. 1 Active hydrocortisone 2.5 % ointmentIndicat ions:Dermatitis Apply to rash 2-3 times per day as needed 60 g 2 1 Active valACYclovir (VALTREX) 500 MG tabletIndicatio ns:HSV (herpes simplex virus) infection Take 1 Tablet by mouth two times a day. 180 Tablet 1 1 Active valACYclovir (VALTREX) 1 g tabletIndicatio ns:HSV (herpes simplex virus) infection 2 tabs at onset of cold sore 2 tabs po 12 hrs later 4 Tablet 6 1 Active Active Problems Problem Noted Date Diagnosed Date Dermatitis 09/27/2017 Overview (10/01/2017): CAMP - all doubtful reactions - 10/13 search codes 1: [id number] search codes 2: KDWZEUSWE Immunizations Immunization Administration Dates Next Due HepB Adult (Engerix-B, 20+ y rs, 3 dose series) 08/14/1998,03/12/1998,02/08/1998 MMR 02/08/1998 Td 03/07/2003 Social History Tobacco Use Types Packs/Day Years Used Date Smoking Tobacco: Never Smokeless Tobacco: Never Tobacco Cessation:Counseling Given: No Alcohol Use Standard Drinks/Week Comments No 0 (1 standard drink = 0.6 oz pur e alcohol) PHQ-2 Answer Date Recorded PHQ-2 Score 0 10/11/2020 Comments Unknown Sex and Gender Information Value Date Recorded Sex Assigned at Not on file Legal Sex Female 5:26 AM CDT Gender Identity Not on file Sexual Orientation Not on file Last Filed Vital Signs Vital Sign Reading Time Taken Comments Blood Pressure 136/82 10/11/2020 10:52 AM CDT Pulse - - Temperature - - Respiratory Rate - - Oxygen Saturation - - Inhaled Oxygen Concentration - - Weight 81.2 kg (179 lb) 10/11/2020 10:52 AM CDT Height 165.1 cm (5' 5) 10/11/2020 10:52 AM CDT Body Mass Index 29.79 10/11/2020 10:52 AM CDT Plan of Treatment Health Maintenance Due Date Last Done Comments Colon Cancer Screening Plan Due 1965 Hep C Screening (Preventive Services) 1965 HIV Screening (Preventive Services) 1981 Adult Preventive Visit 1983 Cholesterol 2010 Pneumococcal 50+ Yrs (1 of 1 - PCV) 2015 Zoster/Shingles (1 of 2) 2015 Mammogram 07/23/2021 07/23/2020, 06/29 (Completed), 04/01/2020 (Completed), Additional history exists Cervical Cancer Screening 12/23/2022 12/23/2017 (Com pleted) COVID-19 Vaccine (1 - 2023- season) 2024 Influenza (#1) 2024 DTaP/Tdap/Td (2 - Tdap) 12/12/2030 12/12/2020, 03/07 HepB Completed 08/14/1998, 02/26, 02/08/1998 HepA Aged Out No longer eligi ble based on patient's age to complete this topic Hib Aged Out No longer eligi ble based on patient's age to complete this topic IPV (Polio) Aged Out No longer eligi ble based on patient's age to complete this topic MCV4 Aged Out No longer eligi ble based on patient's age to complete this topic Meningococcal B Aged Out No longer el igible based on patient's age to complete this topic Care Teams Sales Representative Jewelry Relationship Specialty Start Date End Date Unassigned, Provider [address] [place] [address] PCP - General 08/24/02
[2024-09-21 17:10] VITALS: BP 135/85; PULSE 88; RESP 18; TEMP 36.8; O2SAT 98; BMI 29.5
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
[2024-09-21 19:08] VITALS: O2SAT 100
--- NOTE | 2024-09-21 19:08 | CRLHL7_ITS ---
For Patients: As a result of the Cures Act, medical imaging exams and procedure reports are released immediately into your electronic medical record. You may view this report before your referring provider. If you have questions, please contact your health care provider. INDICATION: Chest wall pain after wall, injury, chest wall pain after fall TECHNIQUE: Chest radiograph, Rib radiographs 3 views left COMPARISON: None FINDINGS: Mediastinum: The mediastinum is normal in appearance. The heart silhouette is normal in size and morphology. Lung: Both lungs are unremarkable in appearance. No sign of pleural effusion seen. No pneumothorax is identified. Ribs and bones: No definite acute rib fractures are identified in the visualized ribs. The remaining osseous structures are unremarkable for age. A radiographic marker is noted over the inferior left hemithorax, designating the site of maximal reported symptoms. The apical ribs are excluded. Soft tissue: Unremarkable. IMPRESSION: 1. No acute cardiopulmonary disease is seen. No acute rib injuries noted. Dictated by: Arnold Song MD @ 09/21/2024 19:31:18 (Electronically Signed)
[2024-09-21 19:39] LABS: Basophils Absolute Auto 0.04 K/uL (0.00-0.30); Basophils Percent Auto 0.4 % (0.0-3.0); Eosinophils Absolute Auto 0.06 K/uL (0.00-0.50); Eosinophils Percent Auto 0.6 % (0.0-7.0); Hematocrit 41.3 % (33.0-51.0); Hemoglobin* 13.5 gm/dL (12.0-16.0); Immature Granulocytes Abs Auto 0.03 K/uL (0.00-0.30); Immature Granulocytes Pct Auto 0.3 %; Lymphocytes Percent Auto 18.7 % (20-44); Mean Corpuscular HGB Conc 33 gm/dL (32-36); Mean Corpuscular Hemoglobin 30 pg (26-34); Mean Corpuscular Volume 91 fL (80-100); Monocytes Percent Auto 7.8 % (0.0-11.0); Neutrophils Percent Auto 72.2 % (42.0-72.0); Platelet Count* 318 K/uL (140-440); Red Blood Count 4.56 m/uL (4.00-5.20); White Blood Count* 9.96 K/uL (4.50-11.00)
[2024-09-21 19:51] VITALS: BP 123/76; PULSE 66; RESP 16; O2SAT 99
[2024-09-21 19:51] LABS: Slide Review Reflex No
--- OUTSIDE RECORDS SUMMARY | 2024-09-21 20:26 | XMS_ITS | Clinical Summary ---
Author Organization [facility] Address [address] [place] [address] Care Team Providers Care Photographer Helper Name Role Phone Unassigned, Provider Primary Care [...] for each transition of care or referral. [facility] Active Allergy Reactions Criticality Noted Date [...] doubtful reactions - 10/13 search codes 1: [id number] search codes 2: KDWZEUSWE Immunizations Immunization Administration [...] age to complete this topic Care Teams Photographer Helper Relationship Specialty Start Date End Date Unassigned, Provider [address] [place] [address] PCP - General 08/24/02
--- OUTSIDE RECORDS SUMMARY | 2024-09-21 20:26 | XMS_ITS | Clinical Summary ---
Author Organization [facility] Address [address] [place] [address] Care Team Providers Care Director Online Marketing Name Role Phone Miryam Mcclain Primary Care [...] ASCUS/HPV 16 positive, HPV 18 negative 01/2023 [place]: ECC Benign 01/2024 ASCUS/HPV 16 positive, HPV [...] Department Care Team Description 09/21/[address] [facility] [address] [place] [address] Miryam Mcclain PA Chest Pain 08/10/2024 4:00 PM PLODDING MACHINE OPERATOR Ancillary Procedure [facility] [address] [place] [place] [address] 08/10/2024 Travel 07/31/2024 8:30 AM PLODDING MACHINE OPERATOR Office Visit 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 Not on file Not on file Not [...] Comments Blood Pressure 109/72 07/31/2024 8:32 AM PLODDING MACHINE OPERATOR Pulse 88 07/31/2024 8:32 AM PLODDING MACHINE OPERATOR Temperature 37.2 C (99 F) 07/31/2024 8:32 AM PLODDING MACHINE OPERATOR Respiratory Rate 14 07/20/2023 8:43 AM PLODDING MACHINE OPERATOR Oxygen Saturation 96% 07/31/2024 8:32 AM PLODDING MACHINE OPERATOR Inhaled Oxygen Concentration - - Weight 79.8 kg (176 lb) 07/31/2024 8:32 AM PLODDING MACHINE OPERATOR Height 165.1 cm (5' 5) 02/11/2024 7:53 AM CDT Body Mass Index 29.29 02/11/2024 7:53 AM CDT Plan of Treatment Upcoming Encounters Date Type Department Care Team (Late st Contact Info) Description 01/22/2025 8:30 AM CDT Office Visit [facility] [address] [place] [address] Miryam Mcclain PA [address] [place] [address] Health Maintenance Due Date Last Done Comments [...] CT CHEST WO Routine 08/10/2024 3:58 PM PLODDING MACHINE OPERATOR Incidental lung nodule, less than or equal to 3mm LIPID PANEL W REFLEX MEASURED LDL Routine 02/11/2024 8:46 AM CDT Lipid screening HPV HIGH RISK Routine 02/11/2024 8:28 AM CDT Screening for cervical cancer COLONOSCOPY DIAGNOSTIC Routine 07/20/2023 7:21 AM PLODDING MACHINE OPERATOR Hematochezia XR MAMMO JUNG BILAT SCREEN Routine 01/22/2023 8:08 AM CDT Encounter for screening mammogram for malignant neoplasm of breast ANTI HCV Routine 12/04/2014 10:17 AM CDT Need for hepatitis C screening test from Last 3 Months or Most Recently Relevant to Health Maintenance Results * CT CHEST WO (08/10/2024 3:58 PM PLODDING MACHINE OPERATOR) Anatomical Region Laterality Modality CHEST, THORAX, HEART Computed To mography 08/11/2024 1:26 PM PLODDING MACHINE OPERATOR Impressions 08/11/2024 1:26 PM PLODDING MACHINE OPERATOR Stable 3 millimeter right upper lobe pulmonary nodule. No new or concerning lung nodule. Please note that all CT scans at this facility use dose modulation, iterative reconstruction, and/or weight-based dosing when appropriate to reduce radiation dose to as low as reasonably achievable. Dictated by Ruben Plascencia MD @ 08/11/2024 1:26:34 PM (Electronically Signed) Narrative 08/11/2024 1:26 PM PLODDING MACHINE OPERATOR For Patients: As a result of the [...] - 199 mg/dL 02/11/2024 5:31 PM CDT [facility] Comment: Cholesterol, Total Reference Ranges Desirable <200 mg/dL Borderline 200-239 mg/dL High >=240 mg/dL TRIGLYCERIDES 173(H) <150 mg/dL 02/11/2024 5:31 PM CDT [facility] HDL CHOLESTEROL 54 >40 mg/dL 5:31 PM CDT [facility] NON-HDL CHOLESTEROL 149(H) <145 mg/dl 02/11/2024 5:31 PM CDT [facility] CHOL/HDL RATIO 3.76 <4.50 02/11/2024 5:31 PM CDT [facility] LDL CHOLESTEROL 114 <=130 mg/dL 02/11/2024 5:31 PM CDT [facility] VLDL CHOLESTEROL 35(H) <=30 mg/dL 02/11/2024 5:31 PM CDT [facility] PROVIDER ORDERED STATUS RANDOM 02/11/2024 5:31 PM CDT [facility] Blood BLOOD SPECIMEN / Unknown Venipuncture / Unknown 02/11/2024 8:46 AM CDT 02/11/2024 8:46 [address] CDT [address] MD CHEMISTRY Final Resul t Performing Organization Address City/[facility] Co de Phone Number [facility] [address] [address], [place] * (ABNORMAL) HPV HIGH RISK (02/11/2024 8:28 AM CDT) TYPE 16 Positive(A) Negative 02/16/2024 5:34 PM CDT [facility] TYPE 18 Negative Negative 02/16/2024 5:34 PM CDT [facility] OTHER HIGH RISK TYPES Negative Negative 02/16/2024 5:34 PM CDT [facility] Other (Cervical) Non-Blood / Unknown 02/11/2024 8:28 AM CDT 02/14/2024 3:30 PM CDT Narrative [facility] - 02/16/2024 5:34 PM CDT Specimen is positive for HPV type 16 DNA. HPV types 18, 31, 33, 35, 39, 45, 51, 52, 56, 58, 59, 66 and 68 DNA were undetectable or below the pre-set threshold Methodology: Lori Juan [address] HPV Test us [address] MD MICROBIOLOGY Final Resul t Performing Organization Address [facility] Co de Phone Number [facility] [address] [address], [place] * COLONOSCOPY (07/20/2023 7:46 AM PLODDING MACHINE OPERATOR) 07/20/2023 7:46 AM PLODDING MACHINE OPERATOR Narrative Transcriptions Varun Centeno MD - 07/20/2023 [...] an adequate candidate for conscious sedation. The [id number] was passed through the anus and advanced [...] 7:46 AM Procedure Code(s): --- Professional --- 27437, Colonoscopy, flexible; diagnostic, including collection of specimen(s) bybrushing or washing, when performed (separateprocedure) Diagnosis Code(s): --- Professional --- K64.8, Other hemorrhoids K92.1, Melena (includes Hematochezia) CPT copyright 2021 [employer]. All rights reserved. The codes documented in this report are preliminary and upon deburrer machine reviewmay be revised to meet current compliance [...] care provider. XR MAMMO JUNG BILAT SCREEN [[id number]] CLINICAL HISTORY: This is an asymptomatic 57 y.o. patient. INDICATION FOR EXAM: Mammogram Screening. TECHNIQUE: CC & MLO views were obtained. This study was evaluated with the assistance of Computer-Aided Detection. Breast Tomosynthesis was used in interpretation. COMPARISON FILM: Yes [facility] FINDINGS: The breasts are heterogeneously dense, which may obscure small masses. There are no dominant masses, suspicious micro calcifications or areas of architectural distortion. Miryam EVANGELISTA MAMMO Final R esult * ANTI HCV (12/04/2014 10:17 AM CDT) HEPATITIS C ANTIBODY Non-Reacti ve Non-Reacti ve 12/04/2014 5:14 PM CDT [facility] Blood specimen (specimen) BLOOD SPECIMEN / Unknown Venipuncture / Unknown 12/04/2014 10:17 AM CDT 12/04/2014 10:17 AM CDT Narrative [facility] - 12/04/2014 5:14 PM CDT Antibodies to HCV not detected; does not exclude the possibility of exposure to HCV. Brittany Valiente NP SEND OUTS F inal Result [facility] [address] [place] [address], [place] from Last 3 Months or Most Recently Relevant to Health Maintenance Insurance [facility], [facility]–1983 Care Teams Director Online Marketing Relationship Specialty Start Date End Date Miryam Mcclain PA [address] [place] [address] PCP - General Family Practice 12/25/13
[2024-09-21 20:40] VITALS: BP 122/71; PULSE 60; RESP 12
== END 2024-09-21 20:41 | disposition home or self-care (01) ==
LOC: ED 20:24
PROVIDERS: Emergency Provider Family Medicine; PCP Physician Assistant Medical
DX: R07.89 Other chest pain (principal)
CPT/HCPCS: 36415; 71101; 84484; 85025; 93005; 94761; 99283; 99284; 99285